=== PATIENT | female | born 1980 | race Caucasian/White ===

== ENCOUNTER 2017-10-19 11:55 | Emergency (ER) | payer BC, OTHER ==
[2017-10-19 12:26] VITALS: BP 183/119
[2017-10-19] MEDS ORDERED: Prochlorperazine 10 MG/2 ML SDV IVPUSH ONE (12:34)
[2017-10-19] MEDS ORDERED: Sodium Chloride 0.9% 10 ML Syringe FLUSH PRN (12:34)
[2017-10-19] MEDS ORDERED: diphenhydrAMINE 50 MG/ML SDV IVPUSH ONE ×2 (12:35→12:51)
[2017-10-19] MEDS ORDERED: Ketorolac 30 MG/ML SDV IVPUSH ONE (12:35)
--- NOTE | 2017-10-19 13:25 | EDM.PDOC ---
ED HPI GENERAL MEDICAL PROBLEM - General Chief Complaint: Headache Stated Complaint: HEADACHE Time Seen by Provider: 10/19/17 12:15 Source of Information: Reports: Patient History Limitations: Reports: No Limitations - History of Present Illness INITIAL COMMENTS - FREE TEXT/NARRATIVE: The patient presents with a generalized headache. This has been going on for a few days and this morning it was worse. She has no nausea or vomiting. She has no numbness or weakness. She does have some upper respiratory symptoms such as runny nose. She has no fever or chills. She does have a history of headaches. Onset: Gradual Duration: Day(s): Quality: Reports: Pressure Severity: Severe Improves with: Reports: None Worsens with: Reports: None Associated Symptoms: Reports: Headaches. Denies: Confusion, Chest Pain, Fever/ Chills, Nausea/Vomiting, Shortness of Breath Headache Pain Score (Numeric/FACES): 9 - Related Data Allergies Allergy/AdvReac Type Severity Reaction Status Date / Time acetaminophen Allergy Hives Verified 10/19/17 12:20 Home Meds: Home Meds Dextroamphetamine/Amphetamine [Adderall 20 mg Tablet] 20 mg PO BID 06/17/16 [ History] Gabapentin [Neurontin] 1 tab PO DAILY PRN 06/17/16 [History] Omeprazole 20 mg PO BID 06/17/16 [History] SUMAtriptan [Imitrex] 1 tab PO DAILY 06/17/16 [History] busPIRone [Buspar] 10 mg PO ASDIRECTED PRN 06/17/16 [History] Past Medical History Other HEENT History: wears glasses Gastrointestinal History: Reports: GERD, Other (See Below) Other Gastrointestinal History: gastric sleeve Neurological History: Reports: Migraines Endocrine/Metabolic History: Reports: Other (See Below) Other Endocrine/Metabolic History: LUPAS Social & Family History - Tobacco Use Smoking Status *Q: Light Tobacco Smoker Years of Tobacco use: 10 Packs/Tins Daily: 0.1 - Caffeine Use Caffeine Use: Reports: Soda - Recreational Drug Use Recreational Drug Use: No ED ROS GENERAL - Review of Systems Review Of Systems: See Below Constitutional: Reports: No Symptoms HEENT: Reports: Other (Runny nose) Respiratory: Reports: No Symptoms Cardiovascular: Reports: No Symptoms Endocrine: Reports: No Symptoms GI/Abdominal: Reports: No Symptoms Musculoskeletal: Reports: No Symptoms Skin: Reports: No Symptoms Neurological: Reports: Headache - Physical Exam Exam: See Below Exam Limited By: No Limitations General Appearance: Alert, No Apparent Distress Ears: Normal External Exam Nose: Normal Inspection Head Exam: Atraumatic, Normocephalic Neck: Normal Inspection Respiratory/Chest: No Respiratory Distress, Lungs Clear, Normal Breath Sounds Cardiovascular: Regular Rate, Rhythm, No Edema, No Murmur GI/Abdominal: Soft, Non-Tender, No Organomegaly, No Mass Neuro Exam (Abbreviated): Alert, Oriented, No Motor/Sensory Deficits Course - Vital Signs Last Recorded V/S: Last Vital Signs Temp 97.8 F 10/19/17 12:20 Pulse 68 10/19/17 12:20 Resp 18 10/19/17 12:20 BP 183/119 H 10/19/17 12:20 Pulse Ox 97 10/19/17 12:20 - Orders/Labs/Meds Orders: Active Orders 24 hr Category Date Time Status Peripheral IV Care [RC] . DIRECTED Care 10/19/17 12:34 Active Sodium Chloride 0.9% [Saline Flush] Med 10/19/17 12:34 Active 10 ml FLUSH ASDIRECTED PRN Peripheral IV Insertion Adult [OM.PC] Routine Oth 10/19/17 12:34 Ordered Medication Orders Sodium Chloride (Saline Flush) 10 ml FLUSH ASDIRECTED PRN PRN Reason: Keep Vein Open Last Admin: 10/19/17 13:00 Dose: 10 ml Meds: Medications Generic Name Dose Route Start Last Admin Trade Name Freq PRN Reason Stop Dose Admin Sodium Chloride 10 ml 10/19/17 12:34 10/19/17 13:00 Saline Flush FLUSH 10 ml ASDIRECTED PRN Administration Keep Vein Open Discontinued Medications Generic Name Dose Route Start Last Admin Trade Name Freq PRN Reason Stop Dose Admin Diphenhydramine HCl 50 mg 10/19/17 12:35 10/19/17 12:52 Benadryl IVPUSH 10/19/17 12:36 Not Given ONETIME ONE Diphenhydramine HCl 25 mg 10/19/17 12:51 10/19/17 12:58 Benadryl IVPUSH 10/19/17 12:52 25 mg ONETIME ONE Administration Ketorolac Tromethamine 30 mg 10/19/17 12:35 10/19/17 12:53 Toradol IVPUSH 10/19/17 12:36 30 mg ONETIME ONE Administration Prochlorperazine Edisylate 10 mg 10/19/17 12:34 10/19/17 12:55 Compazine IVPUSH 10/19/17 12:35 10 mg ONETIME ONE Administration - Re-Assessments/Exams Free Text/Narrative Re-Assessment/Exam: 10/19/17 13:24 I ordered an IV saline lock, compazine 10mg IV, benadryl 25mg IV and toradol 30mg IV. 10/19/17 15:07 She is feeling better. I will discharge her home. Departure - Departure Time of Disposition: 15:10 Disposition: Home, Self-Care 01 Condition: Good Clinical Impression: Migraine - Discharge Information Referrals: Diane Mark, [facility] [Primary Care Provider] - Forms: ED Department Discharge Additional Instructions: Go home and try to get some rest. Please return if you are worse. - My Orders Last 24 Hours: My Active Orders 10/19/17 12:34 Peripheral IV Care [RC] . DIRECTED Sodium Chloride 0.9% [Saline Flush] 10 ml FLUSH ASDIRECTED PRN Peripheral IV Insertion Adult [OM.PC] Routine - Assessment/Plan Last 24 Hours: My Active Orders 10/19/17 12:34 Peripheral IV Care [RC] . DIRECTED Sodium Chloride 0.9% [Saline Flush] 10 ml FLUSH ASDIRECTED PRN Peripheral IV Insertion Adult [OM.PC] Routine
== END 2017-10-19 15:15 | disposition home or self-care (01) ==
LOC: JD.ED 11:55
DX: G43.909 Migraine, unspecified, not intractable, without status migrainosus (principal); F17.210 Nicotine dependence, cigarettes, uncomplicated; Z88.8 Allergy status to other drugs, medicaments and biological substances; Z79.899 Other long term (current) drug therapy
CPT/HCPCS: 96374; 96375; 99284; J0780; J1200; J1885; J7050

== ENCOUNTER 2020-03-04 07:25 | Emergency (ER) | payer SELFPAY ==
[2020-03-04 07:54] VITALS: BP 98/83; PULSE 94
[2020-03-04] MEDS ORDERED: Sodium Chloride 0.9% 10 ML Syringe FLUSH PRN (07:58)
[2020-03-04] MEDS ORDERED: Clindamycin Phosphate in D5W 600 MG in Premix Bag 1 BAG IV ONE ×2 (07:58)
--- NOTE | 2020-03-04 08:07 | EDM.PDOC ---
ED HPI GENERAL MEDICAL PROBLEM - General Chief Complaint: ENT Problem Stated Complaint: DENTAL COMPLAINT Time Seen by Provider: 03/04/20 07:48 Source of Information: Reports: Patient, RN Notes Reviewed - History of Present Illness INITIAL COMMENTS - FREE TEXT/NARRATIVE: 40 yr old female comes in with L swollen face. She noticed that there was very mild swelling L face yesterday and especially last evening. That is much worse this morning. She states she has many "bad teeth, Has a chipped off tooth L lower jaw". Hx of prior infections. Does not have any dental pain at this time. No throat pain, difficulty swallowing, breathing, fever or chills. Left Jaw Pain Score (Numeric/FACES): 8 - Related Data Allergies Allergy/AdvReac Type Severity Reaction Status Date / Time acetaminophen Allergy Hives Verified 03/04/20 07:32 Home Meds: Home Meds Dextroamphetamine/Amphetamine [Adderall 20 mg Tablet] 20 mg PO BID 06/17/16 [ History] Gabapentin [Neurontin] 0 mg PO DAILY PRN 06/17/16 [History] Omeprazole 20 mg PO BID 06/17/16 [History] SUMAtriptan [Imitrex] 50 mg PO DAILY 06/17/16 [History] busPIRone [Buspar] 15 mg PO ASDIRECTED PRN 06/17/16 [History] clindamycin HCL [Clindamycin HCl] 300 mg PO TID #30 capsule 03/04/20 [Rx] Past Medical History HEENT History: Reports: Impaired Vision Other HEENT History: wears glasses. States has bad teeth. 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: Musculoskeletal History: Reports: Fracture Neurological History: Reports: Migraines Psychiatric History: Reports: Anxiety, Depression Endocrine/Metabolic History: Reports: Other (See Below) Other Endocrine/Metabolic History: LUPAS Hematologic History: Reports: Anemia Immunologic History: Reports: Other (See Below) Other Immunologic History: Lupus - Infectious Disease History Infectious Disease History: Reports: Chicken Pox Social & Family History - Tobacco Use Smoking Status *Q: Never Smoker Second Hand Smoke Exposure: No - Caffeine Use Caffeine Use: Reports: Coffee, Soda - Recreational Drug Use Recreational Drug Use: No ED ROS ENT - Review of Systems Review Of Systems: See Below Constitutional: Denies: Fever, Chills HEENT: Reports: Other (swollen L face). Denies: Dental Pain, Sinus Problem, Throat Pain, Throat Swelling Respiratory: Denies: Shortness of Breath Cardiovascular: Denies: Chest Pain GI/Abdominal: Denies: Nausea, Vomiting Musculoskeletal: Denies: Shoulder Pain, Arm Pain Skin: Reports: Erythema (Mild erythema L face) Neurological: Reports: No Symptoms ED EXAM, ENT - Physical Exam Exam: See Below General Appearance: Alert, No Apparent Distress Eye Exam: Bilateral Eye: Normal Inspection, PERRL Ears: Normal External Exam Nose: Normal Inspection Mouth/Throat: Other (very poor dentition and diffuse gum disease, no ). No: Throat Swelling, Tonsillar Erythema, Tonsillar Exudates Head: Facial Swelling (L ant. face), Facial Tenderness (very mild tenderness L ant face), Other (diffuse gum disease, mild L gum swelling, no visible abcess, no drainage) Neck: Supple Respiratory/Chest: No Respiratory Distress Extremities: Normal Inspection, Normal Range of Motion Neurological: Alert, No Motor/Sensory Deficits Skin: Warm, Dry Course - Vital Signs Last Recorded V/S: Last Vital Signs Temp 97.4 F 03/04/20 07:45 Pulse 94 03/04/20 07:45 Resp 18 03/04/20 07:45 BP 98/83 03/04/20 07:45 Pulse Ox 99 03/04/20 07:45 - Orders/Labs/Meds Orders: Active Orders 24 hr Category Date Time Status Peripheral IV Care [RC] . DIRECTED Care 03/04/20 07:59 Active Peripheral IV Insertion Adult [OM.PC] Stat Oth 03/04/20 07:58 Ordered Meds: Medications Discontinued Medications Generic Name Dose Route Start Last Admin Trade Name Freq PRN Reason Stop Dose Admin Clindamycin Phosphate Confirm 03/04/20 08:26 03/04/20 08:44 Cleocin Administered 03/04/20 08:27 600 mg Dose Administration 600 mg .ROUTE .STK-MED ONE Clindamycin Phosphate 600 mg/ 33.3333 mls @ 100 mls/hr 03/04/20 07:58 Premix IV 03/04/20 08:17 ONETIME ONE Dextrose/Water Confirm 03/04/20 08:27 03/04/20 08:44 Dextrose 5% In Water Administered 03/04/20 08:28 100 mls/hr Dose Administration 100 mls @ as directed .ROUTE .STK-MED ONE Sodium Chloride 10 ml 03/04/20 07:58 Saline Flush FLUSH ASDIRECTED PRN Keep Vein Open - Re-Assessments/Exams Free Text/Narrative Re-Assessment/Exam: 03/04/20 11:24 have given clindamycin 600 mg IV, discharge instr. as documented. Departure - Departure Time of Disposition: 09:40 Disposition: Home, Self-Care 01 Condition: Fair Clinical Impression: Dental infection - Discharge Information Prescriptions: clindamycin HCL [Clindamycin HCl] 300 mg PO TID #30 capsule Instructions: Dental Abscess, [id number] Referrals: Maggie Romero PA-C [Primary Care Provider] - Forms: ED Department Discharge Additional Instructions: you have been given clindamycin 600 mg IV here in the ED, continue that 300 mg orally 3 times daily with your next dose this afternoon, that prescription has been [facility] electronically to [facility] There are open today from 12 noon to 2 PM only. Tylenol for mild to moderate discomfort or hydrocodone if needed for more severe pain. Do not take tylenol and hydrocodone at the same time. Do not drive when taking hydrocodone. See your dentist in about 3 days for recheck, call for apointment. Return to ED as needed if symptoms worsening or not getting better over the next 2 to 3 days as expected. Sepsis Event Note - Evaluation Sepsis Screening Result: No Definite Risk - Focused Exam Vital Signs: Vital Signs Temp Pulse Resp BP Pulse Ox 03/04/20 07:45 97.4 F 94 18 98/83 99 03/04/20 07:30 96.9 F 86 20 157/120 H 96 Date Exam was Performed: 03/04/20 Time Exam was Performed: 11:23 - My Orders Last 24 Hours: My Active Orders 03/04/20 07:58 Peripheral IV Insertion Adult [OM.PC] Stat 03/04/20 07:59 Peripheral IV Care [RC] . DIRECTED - Assessment/Plan Last 24 Hours: My Active Orders 03/04/20 07:58 Peripheral IV Insertion Adult [OM.PC] Stat 03/04/20 07:59 Peripheral IV Care [RC] . DIRECTED
[2020-03-04] MEDS ORDERED: Clindamycin Phosphate 600 MG/4 ML SDV ONE (08:26)
[2020-03-04] MEDS ORDERED: Dextrose 5% in Water 100 ML ONE (08:27)
== END 2020-03-04 10:08 | disposition home or self-care (01) ==
LOC: JD.ED 07:25
DX: K04.7 Periapical abscess without sinus (principal); K21.9 Gastro-esophageal reflux disease without esophagitis; Z88.6 Allergy status to analgesic agent; Z79.899 Other long term (current) drug therapy
CPT/HCPCS: 96365; 99283; J3490; J7060

== ENCOUNTER 2020-06-26 12:15 | Emergency (ER) | payer SELFPAY ==
--- NOTE | 2020-06-26 12:50 | EDM.PDOC ---
ED HPI GENERAL MEDICAL PROBLEM - General Chief Complaint: Genitourinary Problem Stated Complaint: BLOOD IN URINE Time Seen by Provider: 06/26/20 12:36 Source of Information: Reports: Patient, RN Notes Reviewed History Limitations: Reports: No Limitations - History of Present Illness INITIAL COMMENTS - FREE TEXT/NARRATIVE: Patient is a 40-year-old female who presents to the ED for evaluation of possible blood in her urine. She states that this is been going on for the last 2 days, and she is having generalized pain due to her lupus, she states that she believes she may have passed a kidney stone recently and has been having lingering urinary symptoms since then. She states she just feels off like she does when she has a urinary tract infection. She is not complaining of dysuria, frequency or urgency. She is quite anxious in the ER. She did take some ibuprofen, 800 mg at roughly 1030 this morning, this seemed to help a little bit. She states she is also been sleeping more than normal and feels really rundown. She does note that she has high blood pressure at this visit, but states she normally runs high blood pressure when she has pain or medical issues. She states that she felt feverish, but she has no discernible fever in the ER, temperature is 97.9 F. She is in no respiratory distress. O2 sats are 100% on room air. Blood pressure is mildly elevated at 199/104. Her primary care provider is Maggie Romero. Patient is not complaining of any cough or shortness of breath, nausea vomiting or diarrhea. She states that her temperature runs a little bit lower than normal body temperature, so this is why she felt feverish. Generalized Pain Score (Numeric/FACES): 10 - Related Data Allergies Allergy/AdvReac Type Severity Reaction Status Date / Time acetaminophen Allergy Hives Verified 06/26/20 12:26 Home Meds: Home Meds Dextroamphetamine/Amphetamine [Adderall 20 mg Tablet] 20 mg PO BID 06/17/16 [History] Gabapentin [Neurontin] 0 mg PO DAILY PRN 06/17/16 [History] Omeprazole 20 mg PO BID 06/17/16 [History] SUMAtriptan [Imitrex] 50 mg PO DAILY 06/17/16 [History] busPIRone [Buspar] 15 mg PO ASDIRECTED PRN 06/17/16 [History] Cefdinir [Omnicef] 300 mg PO BID 7 Days #14 cap 06/26/20 [Rx] Past Medical History HEENT History: Reports: Impaired Vision Other HEENT History: wears glasses. States has bad teeth. 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: Musculoskeletal History: Reports: Fracture Neurological History: Reports: Migraines Psychiatric History: Reports: Anxiety, Depression Hematologic History: Reports: Anemia Immunologic History: Reports: SLE (Lupus) - Past Surgical History HEENT Surgical History: Reports: Oral Surgery GI Surgical History: Reports: Bariatric Procedure Social & Family History - Tobacco Use Smoking Status *Q: Never Smoker - Caffeine Use Caffeine Use: Reports: Soda - Recreational Drug Use Recreational Drug Use: No ED ROS GENERAL - Review of Systems Review Of Systems: Comprehensive ROS is negative, except as noted in HPI. ED EXAM, RENAL/ - Physical Exam Exam: See Below Exam Limited By: No Limitations General Appearance: Alert, WD/WN, No Apparent Distress, Anxious Respiratory/Chest: No Respiratory Distress, Lungs Clear, Normal Breath Sounds, No Accessory Muscle Use, Chest Non-Tender Cardiovascular: Normal Peripheral Pulses, Regular Rate, Rhythm, No Murmur Extremities: Normal Inspection, Normal Capillary Refill Neurological: Alert, Oriented, Normal Cognition, No Motor/Sensory Deficits Psychiatric: Normal Affect, Normal Mood Skin Exam: Warm, Dry, Intact, Normal Color, No Rash Course - Vital Signs Last Recorded V/S: Last Vital Signs Temp 98.5 F 06/26/20 13:26 Pulse 67 06/26/20 13:26 Resp 16 06/26/20 13:26 BP 221/104 H 06/26/20 13:26 Pulse Ox 100 06/26/20 13:26 - Orders/Labs/Meds Orders: Active Orders 24 hr Category Date Time Status Abdomen Pelvis wo Cont [CT] Stat Exams 06/26/20 12:43 Ordered CULTURE URINE [RM] Routine Lab 06/26/20 13:42 Ordered Labs: Laboratory Tests 06/26/20 06/26/20 06/26/20 Range/Units 12:26 12:26 12:58 WBC 7.96 (3.98-10.04) K/mm3 RBC 5.22 (3.98-5.22) M/mm3 Hgb 14.7 (11.2-15.7) gm/dl Hct 44.5 (34.1-44.9) % MCV 85.2 (79.4-94.8) fl MCH 28.2 (25.6-32.2) pg MCHC 33.0 (32.2-35.5) g/dl RDW Std Deviation 43.3 (36.4-46.3) fL Plt Count 234 (182-369) K/mm3 MPV 11.9 (9.4-12.3) fl Neut % (Auto) 69.5 (34.0-71.1) % Lymph % (Auto) 20.0 (19.3-51.7) % [place] % (Auto) 8.4 (4.7-12.5) % Eos % (Auto) 1.5 (0.7-5.8) Baso % (Auto) 0.3 (0.1-1.2) % Neut # (Auto) 5.54 (1.56-6.13) K/mm3 Lymph # (Auto) 1.59 (1.18-3.74) K/mm3 [place] # (Auto) 0.67 H (0.24-0.36) K/mm3 Eos # (Auto) 0.12 (0.04-0.36) K/mm3 Baso # (Auto) 0.02 (0.01-0.08) K/mm3 Sodium (136-145) mEq/L Potassium (3.5-5.1) mEq/L Chloride (98-107) mEq/L Carbon Dioxide (21-32) mEq/L Anion Gap (5-15) BUN (7-18) mg/dL Creatinine (0.55-1.02) mg/dL Est Cr Clr Drug Dosing mL/min Estimated GFR (MDRD) (>60) mL/min BUN/Creatinine Ratio (14-18) Glucose (74-106) mg/dL Calcium (8.5-10.1) mg/dL Total Bilirubin (0.2-1.0) mg/dL AST (15-37) U/L ALT (14-59) U/L Alkaline Phosphatase (46-116) U/L Total Protein (6.4-8.2) g/dl Albumin (3.4-5.0) g/dl Globulin gm/dL Albumin/Globulin Ratio (1-2) Urine Color Yellow (Yellow) Urine Appearance Clear (Clear) Urine pH 6.5 (5.0-8.0) Ur Specific [place] > or = 1.030 (1.005-1.030) Urine Protein Trace H (Negative) Urine Glucose (UA) Negative (Negative) Urine Ketones Negative (Negative) Urine Occult Blood Negative (Negative) Urine Nitrite Positive H (Negative) Urine Bilirubin Negative (Negative) Urine Urobilinogen 0.2 (0.2-1.0) Ur Leukocyte Esterase Trace H (Negative) Urine RBC 0-5 (0-5) /hpf Urine WBC 10-20 H (0-5) /hpf Ur Squamous Epith Cells 0-5 (0-5) /hpf Urine Bacteria Many H (FEW) /hpf Urine Mucus Few (FEW) /hpf Urine HCG, Qual Negative (NEGATIVE) 06/26/20 Range/Units 12:58 WBC (3.98-10.04) K/mm3 RBC (3.98-5.22) M/mm3 Hgb (11.2-15.7) gm/dl Hct (34.1-44.9) % MCV (79.4-94.8) fl MCH (25.6-32.2) pg MCHC (32.2-35.5) g/dl RDW Std Deviation (36.4-46.3) fL Plt Count (182-369) K/mm3 MPV (9.4-12.3) fl Neut % (Auto) (34.0-71.1) % Lymph % (Auto) (19.3-51.7) % [place] % (Auto) (4.7-12.5) % Eos % (Auto) (0.7-5.8) Baso % (Auto) (0.1-1.2) % Neut # (Auto) (1.56-6.13) K/mm3 Lymph # (Auto) (1.18-3.74) K/mm3 [place] # (Auto) (0.24-0.36) K/mm3 Eos # (Auto) (0.04-0.36) K/mm3 Baso # (Auto) (0.01-0.08) K/mm3 Sodium 141 (136-145) mEq/L Potassium 4.4 (3.5-5.1) mEq/L Chloride 107 (98-107) mEq/L Carbon Dioxide 25 (21-32) mEq/L Anion Gap 13.4 (5-15) BUN 12 (7-18) mg/dL Creatinine 1.0 (0.55-1.02) mg/dL Est Cr Clr Drug Dosing 72.00 mL/min Estimated GFR (MDRD) > 60 (>60) mL/min BUN/Creatinine Ratio 12.0 L (14-18) Glucose 90 (74-106) mg/dL Calcium 8.5 (8.5-10.1) mg/dL Total Bilirubin 0.6 (0.2-1.0) mg/dL AST 11 L (15-37) U/L ALT 11 L (14-59) U/L Alkaline Phosphatase 65 (46-116) U/L Total Protein 7.1 (6.4-8.2) g/dl Albumin 3.2 L (3.4-5.0) g/dl Globulin 3.9 gm/dL Albumin/Globulin Ratio 0.8 L (1-2) Urine Color (Yellow) Urine Appearance (Clear) Urine pH (5.0-8.0) Ur Specific [place] (1.005-1.030) Urine Protein (Negative) Urine Glucose (UA) (Negative) Urine Ketones (Negative) Urine Occult Blood (Negative) Urine Nitrite (Negative) Urine Bilirubin (Negative) Urine Urobilinogen (0.2-1.0) Ur Leukocyte Esterase (Negative) Urine RBC (0-5) /hpf Urine WBC (0-5) /hpf Ur Squamous Epith Cells (0-5) /hpf Urine Bacteria (FEW) /hpf Urine Mucus (FEW) /hpf Urine HCG, Qual (NEGATIVE) - Re-Assessments/Exams Free Text/Narrative Re-Assessment/Exam: 06/26/20 12:53 Patient presents to the ED for the evaluation of the possibility of blood in urine. Have ordered urinalysis, along with an abdomen pelvis CT without contrast, CBC and CMP for initial management. Patient is requesting that we do not do IV meds or fluids at this time, try to hold off on this as long as possible. She is not toxic enough for me at initial presentation to need to have IV access at this time. 06/26/20 13:52 Patient's urinalysis does demonstrate a UTI. She will be started on a course of Omnicef, cultures have been ordered. Other labs are unremarkable. CT read is pending at this time. I do suspect the CT to be normal. Patient's blood pressure is still somewhat high in the ER, but she is denying any hypertensive issues or crisis, and she does not want any medications, she states that she normally has high blood pressure when she is in pain or in the hospital. Again she is denying any sort of medication for this at this time. Departure - Departure Time of Disposition: 13:52 Disposition: Home, Self-Care 01 Condition: Good Clinical Impression: UTI, Urinary tract infectious disease - Discharge Information *PRESCRIPTION DRUG MONITORING PROGRAM REVIEWED*: No *COPY OF PRESCRIPTION DRUG MONITORING REPORT IN PATIENT NATALEE: No Prescriptions: Cefdinir [Omnicef] 300 mg PO BID 7 Days #14 cap Instructions: Urinary Tract Infection, Adult, [id number] Forms: ED Department Discharge Additional Instructions: You have been evaluated in the ED for your urinary symptoms. Your urinalysis was consistent with an acute urinary tract infection. Your urine was sent for culture, and you will be notified if you should need a change in your antibiotic. This may take up to 48 hours to result. You may take AZO for urinary pain relief. This is available over the counter, and can be attained at any retail store like [employer] or any pharmacy. Please be aware that this medication will make your urine turn orange. You have been given a prescription for Omnicef (cefdinir), 300 mg 1 tablet 2 times a day for 7 days. This has been electronically sent to the [facility] pharmacy located on [address]. Please increase your oral fluid intake and try to stay adequately hydrated. Please return to the ED if your symptoms change or worsen. Sepsis Event Note (ED) - Evaluation Sepsis Screening Result: No Definite Risk - Focused Exam Vital Signs: Vital Signs Temp Pulse Resp BP Pulse Ox 06/26/20 13:26 98.5 F 67 16 221/104 H 100 06/26/20 12:23 97.9 F 87 18 199/104 H 100 - My Orders Last 24 Hours: My Active Orders 06/26/20 12:43 Abdomen Pelvis wo Cont [CT] Stat 06/26/20 13:42 CULTURE URINE [RM] Routine - Assessment/Plan Last 24 Hours: My Active Orders 06/26/20 12:43 Abdomen Pelvis wo Cont [CT] Stat 06/26/20 13:42 CULTURE URINE [RM] Routine
--- NOTE | 2020-06-26 14:00 | CT ---
CT abdomen and pelvis Technique: Multiple axial sections were obtained from above the dome of the diaphragm inferiorly through the pubic symphysis. Intravenous contrast and oral contrast not utilized. Reconstructed coronal and sagittal images were obtained. Comparison: No prior abdominal imaging is available. Findings: Kidneys show no abnormal calcifications. No ureteral dilatation or ureteral stone is seen. Visualized lung bases show nothing acute. Liver contains no focal abnormality. Spleen appears within normal limits. Previous gastric surgery is noted. Adrenal glands show no nodule. Pancreas is within normal limits. Gallbladder contains no calcified gallstones. Aorta shows no aneurysm. No retroperitoneal adenopathy is seen. No mesenteric abnormalities are noted. Appendix is seen which is normal in size. No pelvic mass or adenopathy is seen. No free fluid or inflammatory change is appreciated. Bone window settings were reviewed. No acute osseous finding is appreciated. Disc space narrowing and vacuum phenomena is noted within the L5-S1 disc. Impression: 1. Findings as noted above. 2. Nothing is seen to indicate ureteral stone. No inflammatory change is seen around the kidneys. 3. Nothing acute is appreciated on noncontrast CT study of the abdomen and pelvis. Diagnostic code #2 This report was dictated in MDT
[2020-06-26 14:39] VITALS: BP 201/109; PULSE 72
== END 2020-06-26 14:35 | disposition home or self-care (01) ==
LOC: JD.ED 12:15
DX: N39.0 Urinary tract infection, site not specified (principal); K21.9 Gastro-esophageal reflux disease without esophagitis; G43.909 Migraine, unspecified, not intractable, without status migrainosus; Z88.6 Allergy status to analgesic agent; Z79.899 Other long term (current) drug therapy
CPT/HCPCS: 36415; 74176; 74176-26; 80053; 81001; 81025; 85025; 87086; 87088; 87186; 99283; 99284-25

== ENCOUNTER 2023-01-13 13:39 | Emergency (ER) | payer SELFPAY ==
[2023-01-13] MEDS ORDERED: Sodium Chloride 0.9% 1,000 ML IV ONE (14:06)
[2023-01-13] MEDS ORDERED: HYDROmorphone 0.5 MG/0.5 ML Syringe IVPUSH ONE (14:06)
[2023-01-13] MEDS ORDERED: diphenhydrAMINE 50 MG/ML SDV IVPUSH ONE (14:06)
[2023-01-13] MEDS ORDERED: Metoclopramide 10 MG/2 ML SDV IVPUSH ONE (14:06)
[2023-01-13] MEDS ORDERED: Ketorolac 30 MG/ML SDV IVPUSH ONE (14:06)
[2023-01-13] MEDS ORDERED: Dexamethasone 10 MG/ML SDV IVPUSH ONE (15:15)
[2023-01-13 15:31] VITALS: BP 175/112; PULSE 70
== END 2023-01-13 15:42 | disposition home or self-care (01) ==
LOC: JD.ED 13:39
DX: G43.911 Migraine, unspecified, intractable, with status migrainosus (principal); K21.9 Gastro-esophageal reflux disease without esophagitis; Z88.8 Allergy status to other drugs, medicaments and biological substances; Z79.899 Other long term (current) drug therapy
CPT/HCPCS: 96361; 96374; 96375; 99283; J1100; J1170; J1200; J1885; J2765; J7030